=== PATIENT | male | born 1950 | race Caucasian/White ===

== ENCOUNTER → 2018-07-09 | Outpatient (CLI) | payer OTHER ==
[~2018-07-09] MED LIST: ANUCORT-HC25 MG RECTAL; CARDURA2 MG PO; COLACE100 MG PO; FLOMAX0.4 MG PO; LEVSIN0.125 MG PO; LISINOPRIL20 MG PO; NORCO 5-325 TA1 EACH; PHENAZOPYRIDIN200 M2 PO; PROSCAR 5MG TABL5 MG PO; PROTONIX40 M1 PO; ZOCOR20 MG PO
== END ==
LOC: M.ULTRA 07:40
DX: N40.1 Benign prostatic hyperplasia with lower urinary tract symptoms (principal); Q61.02 Congenital multiple renal cysts; I10 Essential (primary) hypertension; E78.00 Pure hypercholesterolemia, unspecified; Z90.49 Acquired absence of other specified parts of digestive tract; Z87.891 Personal history of nicotine dependence

== ENCOUNTER 2018-08-28 08:20 | Emergency (ER) | payer OTHER ==
[~2018-08-28] VITALS: Ht 170.2 cm; Wt 79.4 kg
[2018-08-28 09:19] LABS: URINE BILIRUBIN NEGATIVE (Negative); URINE BLOOD NEGATIVE (Negative); URINE CLARITY CLEAR; URINE COLOR YELLOW; URINE GLUCOSE-RANDOM NEGATIVE (Negative); URINE KETONES NEGATIVE (Negative); URINE LEUKOCYTES-REFLEX NEGATIVE (Negative); URINE NITRITE-REFLEX NEGATIVE (Negative); URINE PROTEIN NEGATIVE (Negative); URINE UROBILINOGEN 0.2 E.U./dl (0.2-1.0)
[2018-08-28] MEDS ORDERED: TORADOL 10 MG T10 MG PO (09:23)
[2018-08-28] MEDS ORDERED: HYDROCODON-ACE1 EAC7 PO (09:23)
[2018-08-28] MEDS ORDERED: MEDROLDOSEPACK PO (09:23)
[2018-08-28 09:46] VITALS: BP 164/80
== END 2018-08-28 09:46 | disposition home or self-care (01) ==
LOC: M.ERS 08:20
PROVIDERS: Personal Emergency Response Attendant
DX: M79.18 Myalgia, other site (principal); I10 Essential (primary) hypertension; E78.00 Pure hypercholesterolemia, unspecified; Z90.49 Acquired absence of other specified parts of digestive tract

== ENCOUNTER → 2018-10-08 | Outpatient (CLI) | payer OTHER ==
[~2018-10-08] MED LIST changes: +HYDROCODON-ACE1 EAC7 PO; +MEDROLDOSEPACK PO; +TORADOL 10 MG T10 MG PO
== END ==
LOC: M.MRI 06:55
DX: M47.897 Other spondylosis, lumbosacral region (principal); M54.40 Lumbago with sciatica, unspecified side; M51.27 Other intervertebral disc displacement, lumbosacral region; R29.898 Other symptoms and signs involving the musculoskeletal system

== ENCOUNTER 2019-09-14 13:38 | Emergency (ER) | payer OTHER ==
[~2019-09-14] VITALS: Ht 170.2 cm; Wt 86.2 kg
[2019-09-14] MEDS ORDERED: CELEBREX 200 M200 MG PO (13:53)
[2019-09-14] MEDS ORDERED: NEURONTIN100 MG PO (13:54)
[2019-09-14] MEDS ORDERED: ULTRAM50 MG PO (15:14)
[2019-09-14 15:26] VITALS: BP 161/93
== END 2019-09-14 15:27 | disposition home or self-care (01) ==
LOC: M.ERS 13:38
DX: M54.5 Low back pain (principal); I10 Essential (primary) hypertension; E78.00 Pure hypercholesterolemia, unspecified; Z90.49 Acquired absence of other specified parts of digestive tract

== ENCOUNTER → 2019-09-29 | Outpatient (CLI) | payer OTHER ==
[~2019-09-29] MED LIST changes: +CELEBREX 200 M200 MG PO; +NEURONTIN100 MG PO; +ULTRAM50 MG PO
== END ==
LOC: M.PC 05:25
DX: M47.816 Spondylosis without myelopathy or radiculopathy, lumbar region (principal); M51.36 Other intervertebral disc degeneration, lumbar region; M48.061 Spinal stenosis, lumbar region without neurogenic claudication